=== PATIENT | male | born 1960 | race Caucasian/White ===

== ENCOUNTER → 2023-04-18 | Outpatient (CLI) | payer OTHER ==
[2023-04-19 01:06] LABS: LYMPHS % FOR TCELL PROFILE 47 % (Not Estab.); LYMPHS ABS FOR TCELL PROFILE 2.7 x10E3/uL (0.7-3.1); WBC (TCELL) 5.8 x10E3/uL (3.4-10.8)
[2023-04-19 13:07] LABS: ABSOLUTE CD19 435 /uL (12-645); ABSOLUTE CD3 2012 /uL (622-2402); ABSOLUTE CD4 COUNT 1110 /uL (359-1519); ABSOLUTE CD8 896 /uL (109-897); ABSOLUTE NATURAL KILLER CELLS 240 /uL (24-406); CD4/CD8 RATIO 1.24 (0.92-3.72); PERCENT CD19 16.1 % (3.3-25.4); PERCENT CD4 41.1 % (30.8-58.5); PERCENT CD8 33.2 % (12.0-35.5); PERCENT NATURAL KILLER CELLS 8.9 % (1.4-19.4); TCELL %CD3 74.5 % (57.5-86.2)
[2023-04-20 05:08] LABS: HIV 1-2 SCREEN 4TH GEN W/RFLX Preliminary Reactive (Non Reactive); HIV INTERPRETATION HIV-1 Positive; HIV-1 ANTIBODY(MULTISPOT) Reactive (Non Reactive); HIV-2 ANTIBODY(MULTISPOT) Non Reactive (Non Reactive)
== END | disposition home or self-care (01) ==
LOC: RADPV 08:40
PROVIDERS: ATTEND Chiropractor
DX: I07.1 Rheumatic tricuspid insufficiency (principal); R00.2 Palpitations; B20 Human immunodeficiency virus [HIV] disease
CPT/HCPCS: 86355; 86357; 86359; 86360; 87389; 93306